=== PATIENT | male | born 1995 | race Hispanic/Latino ===

== ENCOUNTER 2021-06-22 23:21 | Emergency (ER) | payer OTHER, SELFPAY ==
[2021-06-22 23:30] VITALS: BP 137/88; PULSE 77; RESP 17; TEMP 36.8; O2SAT 95; BMI 29.9
--- NOTE | 2021-06-22 23:58 | ED.ANIMALBIT ---
HPI - Animal Bite General Chief Complaint: Animal Bite Stated Complaint: his dog bit his left/right arm Time Seen by Provider: 06/22/21 23:39 History of Present Illness HPI narrative: 25-year-old male fully immunized, nonsmoker with non contributory medical problems presents with his brother and chief complaint of few dog bites on his bilateral arms. He states that his dog had vomited and when he and his brother attempted to move him to clean up his dog bit each of them. The dog is well behaved and fully immunized. Patient tetanus is up to date. Otherwise well and free of complaint. Related Data Previous Rx's Medication Instructions Recorded amoxicillin 875 mg-potassium 1 tab PO BID #20 tab 06/23/21 clavulanate 125 mg tablet (Augmentin) Allergies Allergy/AdvReac Type Severity Reaction Status Date / Time No Known Drug Allergies Allergy Verified 06/23/21 00:13 Review of Systems Review of Systems Narrative: GENERAL: Denies chills, fatigue, malaise, fever, sweats. HEENT: Denies sinus pain, ear pain, sore throat, difficulty swallowing, dizziness. RESPIRATORY: Denies dyspnea, cough, wheezing, hemoptysis, sputum. CARDIOVASCULAR: Denies chest pain, palpitations, orthopnea, edema, GASTROINTESTINAL: Denies nausea, vomiting, abdominal pain, diarrhea, constipation, melena. : Denies dysuria, frequency, incontinence, hematuria, urinary retention. MUSCULOSKELETAL: denies weakness, joint pain, or bony pain SKIN: See HPI NEUROLOGIC: Denies weakness, headache, numbness, change in speech, confusion, seizures, incoordination. PSYCHIATRIC: No concerning psychosocial issues. 12 point review of systems is negative except for those stated above Patient History Social History Smoking Status: Current every day smoker Exam Narrative Exam Narrative: GEN: AOx3 and in mild distress EYES: Pupils are equal, round, and reactive to light and accommodation. Extraoccular muscles are intact bilaterally. There is no subconjunctival hemorrhage or exudate. CHEST: Lungs are clear to auscultation bilaterally and free of wheezes, rales, or rhonchi. Heart rate is regular rhythm, there are no murmurs, clicks, rubs, or gallops. There is no chest wall tenderness. ABD: Abdomen is soft and nontender. There is no guarding or rebound. Bowel sounds are normal in all 4 quadrants. There is no mass or organomegaly. EXT: Full painless ROM of all extremities with no loss of sensation or strength. SKIN: Multiple puncture wounds on bilateral arms, a few are gaping and will require sutures. Right forearm has 2 lacerations each measuring 1 cm which are gaping with exposure of subcutaneous fat and will require repair. Left forearm as another measuring 1 cm which will require repair Initial Vital Signs Initial Vital Signs: Vital Signs Temperature 98.3 F 06/22/21 23:30 Pulse Rate 77 06/22/21 23:30 Respiratory Rate 17 06/22/21 23:30 Blood Pressure 137/88 06/22/21 23:30 Pulse Oximetry 95 06/22/21 23:30 Procedures Laceration Repair Laceration 1: Site: upper extremity Side (If applicable): right Size (cm): 1 Description: stellate Depth: simple, single layer Local Anesthetic: lidocaine 1% and with bicarb Amount of anesthesia used (mL): 2 Pre-repair: wound explored Skin layer closed with: nylon Size (cm): 5-0 Number of sutures: 1 Technique: simple, interrupted Laceration 2: Site: upper extremity Side (If applicable): right Size (cm): 1 Description: flap Depth: simple, single layer Local Anesthetic: lidocaine 1% and with bicarb Amount of anesthesia used (mL): 2 Pre-repair: wound explored Skin layer closed with: nylon Size (cm): 5-0 Number of sutures: 1 Technique: simple, interrupted Laceration 3: Site: upper extremity Side (If applicable): left Size (cm): 1 Description: irregular Depth: simple, single layer Local Anesthetic: lidocaine 1% and with bicarb Amount of anesthesia used (mL): 2 Pre-repair: wound explored Skin layer closed with: nylon Size (cm): 5-0 Number of sutures: 2 Course Orders Ordered: Discontinued Medications Amoxicillin/Clavulanate Potassium (Amoxicillin/Clav 875/125 Mg) 1 tab PO NOW ONE Stop: 06/23/21 00:04 Last Admin: 06/23/21 00:13 Dose: 1 tab Documented by: AMIE Piresitracin (Bacitracin Oint 0.9 Gm Pckt) 3 applic TOP NOW ONE Stop: 06/23/21 00:42 Last Admin: 06/23/21 00:46 Dose: 3 applic Documented by: JESSICA Lidocaine/Sodium Bicarbonate (Lido 1%/Sod Bicarb 8.4% (10ml) 10 Ml Syringe) 10 ml INJ NOW ONE Stop: 06/23/21 00:04 Last Admin: 06/23/21 00:13 Dose: 10 ml Documented by: AMIE Vital Signs Vital signs: Vital Signs - 8 hr 06/22/21 23:30 06/23/21 01:11 Temperature 98.3 F Pulse Rate 77 84 Respiratory Rate 17 16 Blood Pressure 137/88 125/80 Pulse Oximetry 95 99 Discharge Plan Departure Patient Disposition: Home Clinical Impression: Dog bite Qualifiers: Encounter type: initial encounter Qualified Code(s): W54.0XXA - Bitten by dog, initial encounter Instructions: DI for Animal Bites Activity Restrictions/Additional Instructions: *You have been diagnosed with [dog bites with laceration] *What to do: *Please continue to take your regular medications as directed. [ x] New medication prescriptions sent to your pharmacy: [ [facility]] [ ] New medication written as a paper prescription [ ] No new medications given Please keep the wound clean and dry to the best of your ability. Please monitor for signs of infection such as redness to the skin or increasing pain. Have the sutures removed by your doctor in about 7 days. If you are unable to get into your doctor, we would be happy to remove the sutures in that same timeframe. *If you do not have a primary care provider please contact the [facility] Resource line at [phone]. They will ask some questions about your medical history and help get you set up with a doctor in the community. *Return to Emergency Department if you should have any new, worsening or concerning symptoms, such as [fever greater than 101 F, shaking chills, worsening pain, persistent vomiting or other bothersome symptoms] Prescriptions: New amoxicillin-pot clavulanate [Augmentin] 875-125 mg tablet 1 tab PO BID Qty: 20 RF: 0
[2021-06-23] MEDS: LIDO 1%/SOD BICARB 8.4% (10ML) 10 ML SYRINGE INJ (00:13)
[2021-06-23] MEDS: AMOXICILLIN/CLAV 875/125 MG 1 TAB PO (00:13)
[2021-06-23] MEDS: BACITRACIN OINT 0.9 GM PCKT 3 APPLIC TOP (00:46)
[2021-06-23 01:11] VITALS: BP 125/80; PULSE 84; RESP 16; O2SAT 99
== END 2021-06-23 01:12 | disposition home or self-care (01) ==
LOC: ED 06-23 00:31
PROVIDERS: Emergency Provider Emergency Medicine
DX: S41.152A Open bite of left upper arm, initial encounter (principal); S41.151A Open bite of right upper arm, initial encounter; W54.0XXA Bitten by dog, initial encounter
CPT/HCPCS: 12002; 99283

== ENCOUNTER 2021-07-18 13:08 | Emergency (ER) | payer OTHER, SELFPAY ==
[2021-07-18 13:13] VITALS: BP 132/79; PULSE 102; RESP 16; TEMP 36.9; O2SAT 95; BMI 29.9
--- NOTE | 2021-07-18 13:21 | ED.ANIMALBIT ---
HPI - Animal Bite <Pablo Ferrara PA-C - Last Filed: 07/18/21 16:13> General Chief Complaint: Animal Bite Stated Complaint: Dog bites on both arms Time Seen by Provider: 07/18/21 13:20 Source: patient Mode of arrival: Ambulatory Limitations: no limitations History of Present Illness HPI narrative: Roney presents today with chief complaint of dog bite to both arms that he sustained after lunch today while at home He reports that it was his dog that bit him. His dog is up-to-date on vaccinations. It is a Labrador [place] mix. He reports pain in his right forearm, left wrist secondary to the bite. He reports that he was playing with his dog and the dog started to bite him. This has not happened in the past. He is otherwise healthy and has no known significant past medical problems. Tetanus is up today. Related Data Previous Rx's Medication Instructions Recorded amoxicillin 875 mg-potassium 1 tab PO BID #20 tab 06/23/21 clavulanate 125 mg tablet (Augmentin) amoxicillin 875 mg-potassium 1 tab PO BID 5 Days #10 tab 07/18/21 clavulanate 125 mg tablet (Augmentin) Allergies Allergy/AdvReac Type Severity Reaction Status Date / Time No Known Drug Allergies Allergy Verified 07/18/21 13:16 Review of Systems <Pablo Ferrara PA-C - Last Filed: 07/18/21 16:13> Review of Systems Narrative: As per HPI Patient History <Pablo Ferrara PA-C - Last Filed: 07/18/21 16:13> Social History Smoking Status: Current every day smoker Smoking Status: Current every day smoker alcohol intake frequency: a few times a month Substance Use Type: does not use Exam <DAVID Busby Last Filed: 07/18/21 16:13> Narrative Exam Narrative: Exam Narrative: Const General: cooperative, healthy appearing, comfortable, no acute distress, well developed and well groomed Nutritional Appearance: average body habitus Orientation: alert and oriented x3 HENMT Head: normal to inspection and atraumatic Ears: hearing grossly normal bilaterally Nose: external nose normal and nares normal Face and sinus: normal facial exam Neck Neck: normal visual inspection and supple Resp Effort & Inspection: normal respiratory effort, able to speak in complete sentences, no audible wheezes, not labored, no nasal flaring and no respiratory distress Neuro General: alert, oriented x3, gait normal, tone normal and moves all extremities Cognition: normal cognition Speech: speech normal Gait: normal gait Extremities Upper extremities exposed. Multiple small puncture and lacerations noted to right distal forearm. No obvious bony tenderness or foreign bodies noted. Not currently bleeding. Full range of motion of wrist and fingers. Distal sensation is intact. Left upper extremity has multiple small lacerations to left wrist and hand both on the palmar and dorsal aspect. Not currently bleeding. Capillary refill is intact in all left upper extremity digits. Sensation is intact. Slightly decreased range of motion secondary to pain of left wrist. Bony tenderness to metacarpals of left hand. Psych Appearance: grossly normal and well kempt Mental Status: mental status grossly normal Speech and Movement: speech and movement normal Mood: congruent mood Affect: normal affect Initial Vital Signs Initial Vital Signs: Vital Signs Temperature 98.4 F 07/18/21 13:13 Pulse Rate 102 H 07/18/21 13:13 Respiratory Rate 16 07/18/21 13:13 Blood Pressure 132/79 07/18/21 13:13 Pulse Oximetry 95 07/18/21 13:13 <DO Regina Reaves Last Filed: 07/19/21 11:04> Initial Vital Signs Initial Vital Signs: Vital Signs Temperature 98.4 F 07/18/21 13:13 Pulse Rate 102 H 07/18/21 13:13 Respiratory Rate 16 07/18/21 13:13 Blood Pressure 132/79 07/18/21 13:13 Pulse Oximetry 95 07/18/21 13:13 Course <Pablo Ferrara PA-C - Last Filed: 07/18/21 16:13> Orders Ordered: ED Orders 07/18/21 13:24 XR forearm RT 2V Stat XR hand LT 2V Stat XR wrist LT 2V Stat Vital Signs Vital signs: Vital Signs - 8 hr 07/18/21 13:13 07/18/21 13:46 Temperature 98.4 F Pulse Rate 102 H 104 H Respiratory Rate 16 18 Blood Pressure 132/79 114/71 Pulse Oximetry 95 96 <DO Regina Reaves Last Filed: 07/19/21 11:04> Orders Ordered: ED Orders 07/18/21 13:24 XR forearm RT 2V Stat XR hand LT 2V Stat XR wrist LT 2V Stat Vital Signs Vital signs: Vital Signs - 8 hr 07/18/21 13:13 07/18/21 13:46 Temperature 98.4 F Pulse Rate 102 H 104 H Respiratory Rate 16 18 Blood Pressure 132/79 114/71 Pulse Oximetry 95 96 MDM - Animal Bite <Pablo Ferrara PA-C - Last Filed: 07/18/21 16:13> MDM Narrative Medical decision making narrative: Patient's lacerations do not appear to have compromised his neurovascular status. No obvious fracture or foreign bodies noted on x-rays. He has range of motion so I think that significant tendon injury is less likely at this time. Recommend application of ice, use of acetaminophen or ibuprofen as needed for pain, and use of antibiotics prophylactically for infection. Recommend follow-up with the clinic in 48 hours to have wound check. ER return precautions were discussed. Patient verbalizes understanding and agrees to plan and has no further concerns at this time. Thank you A [id number] system was used with the dictation of this note. Please disregard any spelling or grammatical errors. Discharge Plan Departure Patient Disposition: Home Clinical Impression: Dog bite of arm Qualifiers: Encounter type: initial encounter Laterality: unspecified laterality Qualified Code(s): S41.159A - Open bite of unspecified upper arm, initial encounter Instructions: DI for Animal Bites Activity Restrictions/Additional Instructions: It was nice to me to this afternoon. Please take the antibiotics as recommended to prevent any significant infection from occurring. Recommend changing the bandages daily. Is important that you follow-up with your primary care provider or with another health care provider in 48-72 hours for a wound check. You are welcome to come back here or go to the walk-in clinic if necessary. You experience fever, significant swelling, spreading redness, increased pain or have any other acute concerns or complaints do not hesitate to return for re-evaluation. Thank you Pablo Ferrara PA-C Prescriptions: New amoxicillin-pot clavulanate [Augmentin] 875-125 mg tablet 1 tab PO BID 5 Days Qty: 10 RF: 0 No Action amoxicillin-pot clavulanate [Augmentin] 875-125 mg tablet 1 tab PO BID Qty: 20 RF: 0 Referrals: STACI Alvares MD [Primary Care Provider] - <Torres Estrada DO - Last Filed: 07/19/21 11:04> Cosign ED Attending Cosignature Attestation: I was immediately available in the department for consultation. This documentation has been reviewed and I agree with assessment and plan. Supervised by Torres Estrada DO
--- NOTE | 2021-07-18 13:24 | DI.RAD.S_ITS ---
PROCEDURE: XR WRIST LT 2V INDICATIONS: dog bite TECHNIQUE: 2 views of the wrist were acquired. COMPARISON: None. FINDINGS: Bones: No fractures or dislocations. No suspicious bony lesions. Soft tissues: No suspicious soft tissue calcifications. Soft tissues have a mottled appearance which could be related to soft tissue edema or small soft tissue air locules. IMPRESSION: No fracture. No osseous lesion. If symptoms and/or clinical suspicion for pathology persists, further assessment with repeat radiographs (7-10 days) or advanced imaging (e.g. CT, MRI or bone scan) should be considered. Dictated by: Shannan Boyer MD, PhD on 07/18/2021 at 13:46 Approved by: Shannan Boyer MD, PhD on 07/18/2021 at 13:47
--- NOTE | 2021-07-18 13:24 | DI.RAD.S_ITS ---
PROCEDURE: XR HAND LT 2V INDICATIONS: dog bite TECHNIQUE: 3 views of the hand(s) acquired. COMPARISON: [facility], CR, XR FOREARM RT 2V, 07/18/2021, 13:28. [facility], CR, XR WRIST LT 2V, 07/18/2021, 13:28. FINDINGS: Bones: No acute fractures or dislocations. There is a remote avulsion fracture seen involving the proximal aspect of the proximal phalanx of the 3rd finger. Carpal bones are normally aligned. No suspicious bony lesions. Soft tissues: Soft tissue gas is seen involving the wrist on the lateral view. No radiopaque foreign bodies are seen. IMPRESSION: Soft tissue gas can be seen, without an acute bony abnormality identified. If there is strong suspicion for developing osteomyelitis, please consider a dedicated MRI without and with contrast for further evaluation (assuming that there is no contraindication to MRI). No radiopaque foreign bodies are seen. Dictated by: Franko Moise M.D. on 07/18/2021 at 12:54 Approved by: Franko Moise M.D. on 07/18/2021 at 12:55
--- NOTE | 2021-07-18 13:24 | DI.RAD.S_ITS ---
PROCEDURE: XR FOREARM RT 2V INDICATIONS: dog bite TECHNIQUE: 2 views of the forearm were acquired. COMPARISON: [facility], CR, XR HAND LT 2V, 07/18/2021, 13:28. [facility], CR, XR WRIST LT 2V, 07/18/2021, 13:28. FINDINGS: Bones: No fractures or dislocations. No suspicious bony lesions. Soft tissues: Soft tissue gas can be seen involving the palmar aspect of the wrist. No radiopaque foreign bodies are seen. IMPRESSION: Soft tissue gas is seen distally, which is consistent with the given clinical history. No focal bony abnormality is seen. If there is strong suspicion for developing osteomyelitis, please consider a dedicated MRI without and with contrast for further evaluation (assuming that there is no contraindication to MRI). No radiopaque foreign bodies are seen. Dictated by: Franko Moise M.D. on 07/18/2021 at 12:55 Approved by: Franko Moise M.D. on 07/18/2021 at 12:58
[2021-07-18 13:46] VITALS: BP 114/71; PULSE 104; RESP 18; O2SAT 96
== END 2021-07-18 14:21 | disposition home or self-care (01) ==
PROVIDERS: Emergency Provider Physician Assistant
DX: S41.152A Open bite of left upper arm, initial encounter (principal); S41.151A Open bite of right upper arm, initial encounter; W54.0XXA Bitten by dog, initial encounter
CPT/HCPCS: 73090; 73100; 73120; 99283

== ENCOUNTER 2021-12-05 10:59 | Emergency (ER) | payer OTHER, SELFPAY ==
[2021-12-05 11:18] VITALS: BP 133/77; PULSE 88; RESP 14; TEMP 36.4; O2SAT 96; BMI 31.0
--- NOTE | 2021-12-05 11:35 | PC.NURSE ---
Cayden Goetz RN
[2021-12-05 11:42] LABS: Add Manual Diff / Slide Review NO; Basophils Absolute Auto 100 /uL (0-100); Basophils Percent Auto 0.9 % (0-2); Eosinophils Absolute Auto 100 /uL (0-450); Eosinophils Percent Auto 1.4 % (2-4); Hematocrit 41.1 % (41-53); Hemoglobin 14.3 g/dL (13.5-17.5); Lymphocytes Absolute Auto 1900 /uL (1100-4500); Lymphocytes Percent Auto 21.9 % (25-40); Mean Corpuscular HGB Conc 34.8 % (30-36); Mean Corpuscular Hemoglobin 30.1 PG (26-34); Mean Corpuscular Volume 86.6 fL (80-100); Monocytes Absolute Auto 700 /uL (0-900); Monocytes Percent Auto 7.8 % (3-14); Neutrophils Absolute Auto 5800 /uL (1500-7000); Platelet Count 326 X10^3/uL (150-400); Red Blood Cell Count 4.75 X10^6/uL (4.5-5.9); White Blood Cell Count 8.5 X10^3/uL (4.5-11.0)
[2021-12-05 12:00] LABS: Acetaminophen < 10 ug/mL (10-30); Alanine Aminotransferase 106 IU/L (<50); Albumin 4.8 g/dL (3.5-5.0); Albumin Globulin Ratio 1.3 (1.0-2.8); Alkaline Phosphatase 80 U/L (38-126); Aspartate Aminotransferase 56 IU/L (17-59); BUN Creatinine Ratio 13.2 (6-22); Bilirubin Total 0.4 mg/dL (0.2-1.3); Blood Urea Nitrogen 14 mg/dL (9-20); Calcium 9.8 mg/dL (8.4-10.2); Carbon Dioxide 25 mmol/L (22-32); Chloride 103 mmol/L (98-107); Estimated Glomerular Filt Rate > 60.0 mL/min (>60); Ethanol (ETOH) < 10 mg/dL; Globulin 3.7 g/dL (1.7-4.1); Glucose 104 mg/dL (70-100); HEMOLYSIS < 15 (0-50); Potassium 4.4 mmol/L (3.4-5.1); Salicylate < 1.0 mg/dL (<20); Sodium 138 mmol/L (137-145); Total Protein 8.5 g/dL (6.3-8.2)
[2021-12-05 12:33] LABS: Free T4, Direct Thyroxine 0.98 ng/dL (0.78-2.19)
[2021-12-05 12:47] LABS: Thyroid Stimulating Hormone 2.02 uIU/mL (0.47-4.68)
[2021-12-05 14:49] VITALS: BP 138/76; PULSE 94; RESP 18; O2SAT 97
--- NOTE | 2021-12-05 15:51 | ED.PSYCH ---
HPI - Psych General Chief Complaint: Psychiatric Symptoms Stated Complaint: Mental health concerns Time Seen by Provider: 12/05/21 14:18 Source: patient Mode of arrival: Ambulatory Limitations: no limitations History of Present Illness HPI Narrative: The patient is a 25-year-old gentleman presenting with suicidal ideation. He is [employer]/active duty. He is on medications for depression. He drove to [place] yesterday with the intention to jump. He is engaged. He went home instead. Suicidal ideation continues. He identified himself to his command, he comes here for further evaluation. He has [facility] health care [facility], he does not have immediate access to them. Denies alcohol or drug abuse. He describes a decompression event and 2019. Of their cavity was then decompressed, and had to go into an emergency dive. He suffers PTSD related to this event. He has been removed from his regular duties. He is now doing housekeeping. He faced [employer] today due to ongoing poor performance. He was reduced in rank. He is supposed to leave the [employer] several days ago, but a medical board has been written. Hem ust await results in medical board before he can extend the [employer]. His estimate, he will likely not be released before February 2022. Related Data Previous Rx's Medication Instructions Recorded amoxicillin 875 mg-potassium 1 tab PO BID #20 tab 06/23/21 clavulanate 125 mg tablet (Augmentin) Allergies Allergy/AdvReac Type Severity Reaction Status Date / Time No Known Drug Allergies Allergy Verified 12/05/21 11:18 Review of Systems Constitutional Constitutional: Denies body ache(s), Denies chills, Denies fatigue and Denies fever(s) Eyes Eyes: Denies change in vision ENT Ears, Nose, Mouth, and Throat: Denies sinus pressure and Denies sore throat Cardiovascular Cardiovascular: Denies chest pain, Denies rapid heart rate and Denies pedal edema Respiratory Respiratory: Denies chest congestion and Denies cough Gastrointestinal Gastrointestinal: Denies abdominal pain and Denies vomiting Genitourinary Genitourinary: Denies dysuria Musculoskeletal Musculoskeletal: Denies back pain, Denies muscle weakness and Denies numbness Integumentary/Breasts Skin/Breast: Denies lesions and Denies rash Neurologic Neurologic: Denies confusion, Denies memory loss and Denies numbness Psychiatric Psychiatric: Denies confusion, Reports depression, Reports difficulty concentrating, Denies memory loss, Denies paranoia, Denies homicidal ideation and Reports suicidal ideation Endocrine Endocrine: Denies fatigue Hematologic/Lymphatic On Anticoagulants: No Allergic/Immunologic Allergic/Immunologic: Denies seasonal rhinorrhea Patient History Medical History (Updated 12/05/21 @ 20:25 by Robert Daniel MD) Depression PTSD (post-traumatic stress disorder) Social History Smoking Status: Current every day smoker Smoking Status: Current every day smoker tobacco type: vaping alcohol intake frequency: a few times a month Substance Use Type: does not use Exam Initial Vital Signs Initial Vital Signs: Vital Signs Temperature 97.6 F 12/05/21 11:18 Pulse Rate 88 12/05/21 11:18 Respiratory Rate 14 12/05/21 11:18 Blood Pressure 133/77 12/05/21 11:18 Pulse Oximetry 96 12/05/21 11:18 Const General: cooperative, healthy appearing and anxious HENLA Head: normocephalic and atraumatic Mouth: oral mucosae normal Throat: posterior oropharynx normal Eyes Visual Costa: normal visual costa by confrontation Neck Thyroid: thyroid normal Resp Effort & Inspection: normal respiratory effort Auscultation: clear to auscultation bilaterally Cardio Rate: regular rate Rhythm: regular rhythm Heart Sounds: S1 normal and S2 normal GI Palpation: soft and No tender Auscultation: normal bowel sounds Back/Spine/Pelvis Back: normal to inspection Skin General: no rashes or lesions noted Neuro General: patient alert, patient awake and patient oriented x3 Extrem General: normal to inspection, full ROM, no pedal edema and no calf tenderness Psych Speech and Movement: speech clear Mood: anxious mood and paranoid Affect: indifferent and blunted Attitude: cooperative Thought Content: no delusions, no hallucinations and homicidality Judgment: limited Course Course Course Narrative: The patient was evaluated by the hospital licensed clinical social worker. He has ongoing suicidal ideation. The patient was suggesting intense outpatient care. Social work discussed the case with Drake Jo NP. In patient care was suggested. I discussed the situation here again with our licensed clinical social worker. Discharge the patient is non alternative. The patient was approached once again. Voluntary versus involuntary admission was suggested. The patient is opting for voluntary admission. [facility] will be re-approached for inpatient care. The patient is compliant with caregivers. He is medically cleared for inpatient mental health care. Orders Ordered: ED Orders 12/05/21 13:18 Consult to LACTATION COORDINATOR - Cardiographer Stat 12/05/21 16:13 Urine Drug Screen, Rapid Stat 12/05/21 20:58 COVID19 -Nasal swab/Pre-Proc Stat Vital Signs Vital signs: Vital Signs - 8 hr 12/05/21 14:49 Pulse Rate 94 H Respiratory Rate 18 Blood Pressure 138/76 Pulse Oximetry 97 MDM - Psych Lab Data Result diagrams: 12/05/21 11:35 12/05/21 11:35 Labs: Lab Results 12/05/21 12/05/21 12/05/21 Range/Units 11:35 11:35 11:35 WBC 8.5 (4.5-11.0) X10^3/uL RBC 4.75 (4.5-5.9) X10^6/uL Hgb 14.3 (13.5-17.5) g/dL Hct 41.1 (41-53) % MCV 86.6 (80-100) fL MCH 30.1 (26-34) PG MCHC 34.8 (30-36) % RDW 12.0 (11.6-14.8) % Plt Count 326 (150-400) X10^3/uL Neut % (Auto) 68.0 (50-75) % Lymph % (Auto) 21.9 L (25-40) % [place] % (Auto) 7.8 (3-14) % Eos % (Auto) 1.4 L (2-4) % Baso % (Auto) 0.9 (0-2) % Neut # (Auto) 5800 (5333-5940) /uL Lymph # (Auto) 1900 (7364-1744) /uL [place] # (Auto) 700 (0-900) /uL Eos # (Auto) 100 (0-450) /uL Baso # (Auto) 100 (0-100) /uL Sodium 138 (137-145) mmol/L Potassium 4.4 (3.4-5.1) mmol/L Chloride 103 (98-107) mmol/L Carbon Dioxide 25 (22-32) mmol/L BUN 14 (9-20) mg/dL Creatinine 1.06 (0.66-1.25) mg/dL Estimated GFR > 60.0 (>60) mL/min BUN/Creatinine Ratio 13.2 (6-22) Glucose 104 H (70-100) mg/dL Calcium 9.8 (8.4-10.2) mg/dL Total Bilirubin 0.4 (0.2-1.3) mg/dL AST 56 (17-59) IU/L ALT 106 H (<50) IU/L Alkaline Phosphatase 80 (38-126) U/L Total Protein 8.5 H (6.3-8.2) g/dL Albumin 4.8 (3.5-5.0) g/dL Globulin 3.7 (1.7-4.1) g/dL Albumin/Globulin Ratio 1.3 (1.0-2.8) TSH 2.02 (0.47-4.68) uIU/mL Free T4 0.98 (0.78-2.19) ng/dL Salicylates < 1.0 (<20) mg/dL U Opiates 300ng/mL cut (Negative) Ur Oxycodone Screen (Negative) Urine Methadone Screen (Negative) Acetaminophen < 10 L (10-30) ug/mL Ur Barbiturates Screen (Negative) U Tricyclic Antidepress (Negative) Ur Phencyclidine Scrn (Negative) Ur Amphetamines Screen (Negative) U Methamphetamines Scrn (Negative) Ur MDMA Scrn (Ecstasy) (Negative) U Benzodiazepines Scrn (Negative) Urine Cocaine Screen (Negative) U Marijuana (THC) Screen (Negative) Ethyl Alcohol < 10 ( - 10) mg/dL 12/05/21 Range/Units 16:13 WBC (4.5-11.0) X10^3/uL RBC (4.5-5.9) X10^6/uL Hgb (13.5-17.5) g/dL Hct (41-53) % MCV (80-100) fL MCH (26-34) PG MCHC (30-36) % RDW (11.6-14.8) % Plt Count (150-400) X10^3/uL Neut % (Auto) (50-75) % Lymph % (Auto) (25-40) % [place] % (Auto) (3-14) % Eos % (Auto) (2-4) % Baso % (Auto) (0-2) % Neut # (Auto) (9161-0893) /uL Lymph # (Auto) (2847-2938) /uL [place] # (Auto) (0-900) /uL Eos # (Auto) (0-450) /uL Baso # (Auto) (0-100) /uL Sodium (137-145) mmol/L Potassium (3.4-5.1) mmol/L Chloride (98-107) mmol/L Carbon Dioxide (22-32) mmol/L BUN (9-20) mg/dL Creatinine (0.66-1.25) mg/dL Estimated GFR (>60) mL/min BUN/Creatinine Ratio (6-22) Glucose (70-100) mg/dL Calcium (8.4-10.2) mg/dL Total Bilirubin (0.2-1.3) mg/dL AST (17-59) IU/L ALT (<50) IU/L Alkaline Phosphatase (38-126) U/L Total Protein (6.3-8.2) g/dL Albumin (3.5-5.0) g/dL Globulin (1.7-4.1) g/dL Albumin/Globulin Ratio (1.0-2.8) TSH (0.47-4.68) uIU/mL Free T4 (0.78-2.19) ng/dL Salicylates (<20) mg/dL U Opiates 300ng/mL cut Negative (Negative) Ur Oxycodone Screen Negative (Negative) Urine Methadone Screen Negative (Negative) Acetaminophen (10-30) ug/mL Ur Barbiturates Screen Negative (Negative) U Tricyclic Antidepress Negative (Negative) Ur Phencyclidine Scrn Negative (Negative) Ur Amphetamines Screen Negative (Negative) U Methamphetamines Scrn Negative (Negative) Ur MDMA Scrn (Ecstasy) Negative (Negative) U Benzodiazepines Scrn Negative (Negative) Urine Cocaine Screen Negative (Negative) U Marijuana (THC) Screen Negative (Negative) Ethyl Alcohol ( - 10) mg/dL Urine Dip Bedside Urine Glucose Negative Bedside Urine Bilirubin - Negative Bedside Urine Ketone - Negative Urine Specific [place] 1.025 Bedside Urine Occult Blood - Negative Bedside Urine pH 6.0 Bedside Urine Protein - Negative Bedside Urine Urobilinogen - Negative Bedside Urine Nitrite - Negative Bedside Urine Leukocytes - Negative Esterase Discharge Plan Departure Patient Disposition: Xfer Psychiatric Hosp Clinical Impression: Suicidal ideation, Depression, Acute post-traumatic stress disorder Referrals: STACI Alvares MD [Primary Care Provider] -
--- NOTE | 2021-12-05 16:04 | CM.SWNOTE ---
TRAILER TRUCK DRIVER Assessment TRAILER TRUCK DRIVER - Manager Call Center Assessment TRAILER TRUCK DRIVER/Manager Call Center Assessment Time Spent with Patient Start date 12/05/21 Visit Start Time 14:30 End date 12/05/21 Visit End Time 15:00 Total time Care Management spent on 30 patient visit-in minutes Mental Health Screening Include Onset, Duration, Intensity Presenting Problem Patient presents to ED via self pay representative of his [employer] due to concern for SI. Patient endorses a significant increase in his fleeting SI thoughts with thoughts of plans. Patient endorses he drove to the [place] waited there for 30 minutes and then drove back home after thinking about his fiance and family. Precipitating Event(s) Patient endorses to RN that he lost his rank recently in the [employer] and is going in front of a [employer] Board due to his PTSD. Patient Strengths Patient has fiance as support and is seeking help Current Behavioral Health Provider(s) Patient endorses he sees a Include Facility, Provider, Ph. # psychiatrist and PCP at the [facility] (Ph. # [phone]) Psych. Hx Mental Health and Chemical Patient endorses hx of Dependency depression and SI. Patient endorses rx for Lexapro and Olanzapine. Patient endorses that he stopped taking Olanzapine when it impacted his work, but he states that it helped with his paranoia and sleep. Patient endorses he is depressed at baseline with or without his Lexapro. Patient endorses ETOH and nicotene use and denies use of other substances. Family Hx of Behavioral Abuse None reported Psychiatric Hospitalizations (date(s)/ No hx location) Psychosocial information & Support Patient is 25 y/o male who is Systems active duty [employer] and resides in [place]. Patient endorses that he lives with his 23 y/o brother but does not talk with brother about emotions. Patient endorses that his fiance is his main support but she does not live near by. School/Work Active duty Legal Concerns Legal Matters - Outstanding Issues None Mental Status Orientation (Person/Place/Time) A/Ox4 Stated Mood I don't know Affect (Congruent with Mood?) flat, full range, congruent with mood Thought Content - Specify/Describe Patient endorses thoughts of Obsessions, Delusions, Hallucinations paranoia people are out to get me or the odds are against me. Patient denies auditory hallucinations and endorses visual hallucinations when he does not get enough sleep. Patient states he sees shadows and feels the hair on the back of his neck go up. Patient endorses that he deescalates from this fear by backing up against a wall until his heart rate goes down . Thought Processes (Eddszau-Cvtrwnfr-Liem coherent Dtrgyhwe-Evqfvpgq-Wkeuqrltgy- Ygvwkjosrogwss-Vohvklh-Suazkimhkown- Thought Blocking) Speech (Gqvcvx-Kuzt-Otludyk-Rapid-Soft- slow/soft Loud-Pressured) Motor (Bqluiy-Vqubeiywe-Dtwi-Other) normal, not formally assessed Insight (Nrdx-Qefu-Rxbo/Limited) fair Judgement (Erva-Cotw-Aqzw/Limited) fair Impulse Control (Adequate-Impaired) adequate Memory (Kusdureab-Wafray-Jtnjmo, intact, not formally assessed Impaired-Intact) Concentration (Intact-Impaired) intact Attention (Intact-Impaired) intact Behavior (Appropriate-Inappropriate) appropriate Additional Comment Patient is calm and communicative Risk Assessment Suicidal Ideation (Plan) Yes Homicidal Ideation (Plan) No Comment Patient denies HI. Patient states he thinks about how he would defend himself in moments of violence from others and how he would protect others. Patient endorses hx of SI and hx of fleeting SI plans. Patient endorses he has thought of jumping in front of car before. Patient endorses yesterday he drove to [place] [employer] with intent to jump but ended up turning around after thinking about his fiance and family. Intervention Intervention TRAILER TRUCK DRIVER enters room to meet with patient. Patient endorses hx of Depression and SI. Patient endorses that he does not talk to his supports regularly about his SI. Patient endorses he sees a psychiatrist and PCP for his medication at the [facility]. TRAILER TRUCK DRIVER discusses voluntary inpatient hospitalization and gives time for patient to think about it and discuss it with fiance. Patient endorses hesitation to go to inpatient hospital but would like to try intensive outpatient first . TRAILER TRUCK DRIVER re-enters room and patient 's fiance is on the phone. Fiance states that she has engaged in the [facility] outpatient program before and patient indicates he is interested. Patient denies impulsive thoughts of acting on SI. TRAILER TRUCK DRIVER calls [facility] for active duty and it is reported that they have no beds today and do not have information about outpatient. It is the opinion of this TRAILER TRUCK DRIVER that patient is safe to d/c from ED with outpatient referral to [facility]. TRAILER TRUCK DRIVER to provide patient with crisis contacts as well and to encourage patient to return to ED if symptoms worsen. TRAILER TRUCK DRIVER reviews the above with ED provider Dr. Daniel who indicates agreement and understanding. Plan RA Plan TRAILER TRUCK DRIVER to fax clinicals to [facility] for the intensive outpatient program. JONO Neil
[2021-12-05 17:05] LABS: UR Morphine/Opiate cutoff 300 Negative (Negative); Ur Creatinine Normal (Normal); Ur Specific Gravity Normal (Normal); Urine Amphetamines Negative (Negative); Urine Barbiturates Negative (Negative); Urine Benzodiazepines Negative (Negative); Urine Cocaine Negative (Negative); Urine MDMA Negative (Negative); Urine Methadone Negative (Negative); Urine Methamphetamines Negative (Negative); Urine Oxycodone Negative (Negative); Urine Phencyclidine Negative (Negative); Urine Tetrahydrocannabinol Negative (Negative); Urine Tricyclic Antidepressant Negative (Negative); Urine pH Normal (Normal)
--- NOTE | 2021-12-05 21:22 | CM.SWNOTE ---
FLORIST SUPPLIES SALESPERSON Note Patient is assessed by Renetta Guidry for IOP program via Zoom, reviewed by clinician and it is reported that patient is not appropriate for IOP and in need of inpatient hospitalization. FLORIST SUPPLIES SALESPERSON and ED provider reviews this with patient and patient ultimately agrees to go to inpatient. Renetta Vinton endorses they can accept for tomorrow morning pending a negative covid test. Plan: pending negative covid test [facility]. JONO Neil
--- NOTE | 2021-12-05 21:38 | PC.NURSE ---
pt belonging collected in to 2 pt bags, additionally he has a black lunch box and brown boots. in the lunch box it a large black and silver knife and his wallet.
[2021-12-05 21:49] LABS: COVID19 -Nasal RAPID Negative (Negative)
[2021-12-06 01:45] VITALS: BP 131/71; PULSE 80; RESP 16; TEMP 36.4; O2SAT 96
[2021-12-06 10:34] VITALS: BP 117/81; PULSE 90; RESP 18; TEMP 36.1; O2SAT 100
== END 2021-12-06 10:51 ==
PROVIDERS: Emergency Provider Emergency Medicine
DX: R45.851 Suicidal ideations (principal); F17.290 Nicotine dependence, other tobacco product, uncomplicated; F32.A Depression, unspecified; F43.11 Post-traumatic stress disorder, acute; Z79.899 Other long term (current) drug therapy; X58.XXXA Exposure to other specified factors, initial encounter; Z20.822 Contact with and (suspected) exposure to COVID-19
CPT/HCPCS: 36415; 80053; 80305; 80320; 80329; 81003; 84439; 84443; 85025; 87635; 99283; 99284; C9803; G0480